=== PATIENT | male | born 1955 | race Caucasian/White ===

== ENCOUNTER 2022-06-24 05:31 | Outpatient (CLI) | payer MEDICARE, OTHER ==
[~2022-06-24] VITALS: Ht 166.4 cm; Wt 98.5 kg
[2022-06-25] MEDS ORDERED: SPIR25TA5 PO (15:11)
[2022-06-25] MEDS ORDERED: FLUT9.9S NS (15:11)
[2022-06-25] MEDS ORDERED: OMEP20CA18 PO (15:11)
[2022-06-25] MEDS ORDERED: METO-333 PO (15:11)
[2022-06-25] MEDS ORDERED: DICL75TA2 PO (15:11)
[2022-06-25] MEDS ORDERED: SERT-414 PO (15:11)
[2022-06-25] MEDS ORDERED: TIZA4CAP8 PO (15:11)
[2022-06-25] MEDS ORDERED: LOSA-419 PO (15:11)
[2022-06-25] MEDS ORDERED: GLIP5TAB26 PO (15:11)
[2022-06-25] MEDS ORDERED: FURO80TA3 PO (15:11)
[2022-06-25] MEDS ORDERED: METF-397 PO (15:11)
[2022-06-25] MEDS ORDERED: TMSL.4C PO (15:11)
[2022-06-25] MEDS ORDERED: FEXO180T84 PO (15:11)
[2022-06-25] MEDS ORDERED: NAPR-1070 PO (15:11)
[2022-06-25] MEDS ORDERED: ASPI-999 PO (15:11)
[2022-06-25] MEDS ORDERED: GABA300C PO (15:11)
[2022-06-25] MEDS ORDERED: PRAV10TA PO (15:11)
[2022-06-25] MEDS ORDERED: DILT180C84 PO (16:07)
== END 2022-06-25 16:12 | disposition home or self-care (01) ==
LOC: PREOP 05:31
PROVIDERS: ATTEND Podiatrist Foot & Ankle Surgery
DX: Z01.818 Encounter for other preprocedural examination (principal)